=== PATIENT | female | born 1975 | race Caucasian/White ===

== ENCOUNTER 2020-03-08 18:06 | Emergency (ER) | payer OTHER, SELFPAY ==
[2020-03-08 18:45] LABS: Add Urine Microscopic? YES; Appearance Urine Clear (Clear); Bilirubin Urine Negative (Negative); Blood Urine 1+ (Negative); Color Urine Yellow (Yellow); Glucose Urine UA Negative (Negative); Ketones Urine Negative (Negative); Leukocyte Esterase Ur 2+ (Negative); Nitrate Urine Negative (Negative); Protein Urine Negative (Negative); Urobilinogen Urine 0.2 mg/dL (0.2-1.0); pH Urine 6.5 (5.0-8.0)
[2020-03-08 18:51] VITALS: BP 179/91; PULSE 84; RESP 20; TEMP 36.8; O2SAT 98
[2020-03-08 18:51] LABS: Bacteria Urine 1+ /hpf; Squamous Epithelial Cell Urine Moderate /hpf (Few)
[2020-03-08 19:10] LABS: SARS-CoV-2 Ag Negative (Negative)
--- NOTE | 2020-03-08 19:12 | ED.FEMALEGU ---
HPI - Female Genitourinary General Chief complaint: Urogenital-Female Stated complaint: pt thinks she has covid, chills,SOB,Nausea Time Seen by Provider: 03/08/20 19:00 Source: patient Mode of arrival: ambulatory Limitations: no limitations History of Present Illness HPI Narrative: Patent comes in after having chills, at home. She is worried she may have Covid, as she may have been exposed. She has had dysuria for 1 week, frequency and urgency for several days. No fever that she knows of. MD elicited complaint: dysuria and pelvic pain Severity: moderate Female Urogenital Radiation: Non-Radiating Severity scale (1-10): 5 Quality of pain: cramping Urinary symptoms: Dysuria, Urgency and Frequency Exacerbating factors: urination Associated symptoms: denies other symptoms Treatment prior to arrival: other (pyridium) Related Data Home Medications Medication Instructions Recorded Confirmed cyclobenzaprine 10 mg PO BID 03/08/20 03/08/20 dicyclomine 20 mg PO TID 03/08/20 03/08/20 famotidine 40 mg PO DAILY 03/08/20 03/08/20 fluoxetine [Prozac] 20 mg PO DAILY 03/08/20 03/08/20 levothyroxine 112 mcg PO DAILY 03/08/20 03/08/20 metformin 500 mg PO BID 03/08/20 03/08/20 quetiapine 400 mg PO DAILY 03/08/20 03/08/20 valacyclovir 500 mg PO BID 03/08/20 03/08/20 Allergies Allergy/AdvReac Type Severity Reaction Status Date / Time No Known Allergies Allergy Verified 03/08/20 18:58 Review of Systems Constitutional: Constitutional: Reports no additional constitutional complaints Eyes: Eyes: Reports no additional eye complaints ENT: Reports system reviewed and no additional complaints, except as documented Cardiovascular: Cardiovascular: Reports no additional cardiovascular complaints Respiratory: Respiratory: Reports no additional respiratory complaints Gastrointestinal: Gastrointestinal: Reports no additional gastrointestinal complaints Genitourinary: Genitourinary: Reports no additional female genitourinary complaints Musculoskeletal: Musculoskeletal: Reports no additional musculoskeletal complaints Integumentary/Breasts: Skin/Breast: Reports system reviewed and no additional complaints, except as docu Neurologic: Reports system reviewed and no additional complaints, except as documented Psychiatric: Psychiatric: Reports no additional psychiatric complaints Endocrine: Endocrine: Reports no additional endocrine complaints Hematologic/Lymphatic: Hematologic/Lymphatic: Reports no additional hematologic/lymphatic complaints Allergic/Immunologic: Allergic/Immunologic: Reports no additional allergic/immunologic complaints [facility] Past Medical History Medical History (Updated 03/08/20 @ 19:47 by Albin Koroma MD) ADD (attention deficit disorder) Bipolar 1 disorder delivery delivered Depression Hypothyroid Family History Family History (Updated 03/08/20 @ 19:46 by Albin Koroma MD) Father Diabetes mellitus Mother Diabetes mellitus Heart disease Social History Social History (Updated 03/08/20 @ 19:39 by Albin Koroma MD) Smoking status: Current every day smoker Tobacco type: cigarettes Alcohol intake: never Substance use: never Living arrangements: with family Gender identity (if verbalized by the patient): Female Exam Const: General: no acute distress HENMT: Head: normal to inspection Eyes: Conjunctivae: conjunctivae normal Neck: Neck: normal visual inspection Lymphatic: no lymphedema noted Chest: Chest palpation & inspection: normal inspection of the chest Resp: Effort & Inspection: normal respiratory effort Auscultation: clear to auscultation bilaterally Cardio: Rate: regular rate Rhythm: regular rhythm GI: GI Palp: Yes Soft to palpation Other: non tender : Other: tender over bladder Skin: General skin exam: normal color Neuro: General: patient oriented x3 and moves all extremities Extrem: General: normal to inspection Psych: Mental Status: mental
[2020-03-08] MEDS: LIDOCAINE HCL 1% LOCAL INJ 20 ML VIAL (19:22)
[2020-03-08] MEDS: cefTRIAXone 1 GM VIAL IM (19:22)
[2020-03-08 19:55] VITALS: PULSE 80; RESP 20; O2SAT 98
== END 2020-03-08 19:56 | disposition home or self-care (01) ==
PROVIDERS: Emergency Provider Emergency Medicine; PCP Family Medicine
DX: N39.0 Urinary tract infection, site not specified (principal)
CPT/HCPCS: 81001; 87077; 87086; 87088; 87186; 87426; 96372; 99283; J0696

== ENCOUNTER 2020-11-10 08:48 | Outpatient (CLI) | payer OTHER, SELFPAY ==
--- NOTE | 2020-11-10 15:38 | WPDPFTINT ---
PFT Procedure Performed PFT Procedure Performed Spirometry with Pre/Post Bronchodilator Plethysmography (Lung Vol) Diffusing Cap (DLCO) Flow Vol Loop PFT Interpretation DOS: 11/10/2020 REQUESTING: Shruthi Ramírez MD REASON FOR TESTING: Shortness of breath PULMONARY FUNCTION TESTS Results are reliable and reproducible. Spirometry: FEV1 is 114% predicted, 3.3 L. FVC is 125% predicted. The FEV1/FVC ratio is 89%, normal. After bronchodilator administration there is no increase in flows. Lung volumes: Total lung capacity is 102% predicted, normal. Residual volume is 68%, normal. RV/TLC is 23%, no air trapping. Airway resistance is increased 141%. Diffusion: DLCO is 82%, normal. Flow volume loop: Normal. IMPRESSION: This pulmonary function study shows normal spirometry, lung volumes and diffusion. No response to bronchodilator administration. Lack of response to bronchodilator should not preclude use if clinically indicated. This study was performed prior to a methacholine challenge. Danika Bucio MD
--- NOTE | 2020-11-10 15:51 | WPDMETH ---
Methacholine Procedure Perform Procedure Performed Methacholine Challenge Methacholine Challenge Methacholine Challenge: DOS: 11/10/2020 REQUESTING: Shruthi Ramírez MD; JASMYN Bennett REASON FOR TESTING: Shortness of breath METHACHOLINE CHALLENGE This test was conducted per ATS guidelines. A previous study today showed normal spirometry. The patient was exposed to sequentially increasing doses of methacholine in the usual manner. Pre-baseline - saline Level 1 - 0.025 mg Level 2 - 0.25 mg Level 3 - 2.5 mg ; drop in FEV1 29% after this dose Level 4 - 10 mg Level 5 - 25 mg The test was stopped after the 3rd dose when the FEV1 dropped by 29%. A decrease of 20% in the FEV1 is a positive result, and the testing is terminated. Flows returned to normal after bronchodilator was administered. IMPRESSION: This is a positive methacholine challenge with the PD20 2.5 mg on the third dose. The best use for a methacholine challenge is to rule out asthma. Clinical correlation is advised. Danika Bucio MD
== END 2020-11-10 08:49 | disposition home or self-care (01) ==
LOC: CHSCARD 08:50
PROVIDERS: PCP Family Medicine; Visit Provider Physician Assistant
DX: R06.02 Shortness of breath (principal)
CPT/HCPCS: 94070; 94726; 94729

== ENCOUNTER 2022-05-22 19:22 | Emergency (ER) | payer OTHER, SELFPAY ==
--- NOTE | ~2022-05-22 | CT_ITS ---
EXAMINATION: CT brain wo con DATE: 05/22/2022 20:51 INDICATION: CONFUSION, HALLUCINATIONS W/ GENERALIZED CP + ANXIETY. . TECHNIQUE: Computed tomography (CT) of the head was performed without intravenous contrast. The mA wa s adjusted according to patient size. Iterative reconstruction technique was employed. The dose-lengt h product was 605.33 mGy-cm. COMPARISON: None. FINDINGS: No acute intracranial hemorrhage or extra-axial fluid collection. No hydrocephalus, mass, or herniation. No acute ischemic infarct. Unremarkable dural venous sinus attenuation. No acute osseous abnormality. The aerated spaces are clear. IMPRESSION: No acute intracranial process. Reviewed, dictated and finalized at location K.
[2022-05-22] MEDS: LORazepam INJ (*CRX) 2 MG/ML VIAL IV PUSH (19:31)
--- NOTE | 2022-05-22 19:43 | ED.ANXIETY ---
HPI - Anxiety General Chief Complaint: Overdose Stated Complaint: Anxiety Attck Time Seen by Provider: 05/22/22 19:43 Source: patient Mode of arrival: ambulatory History of Present Illness HPI narrative: 46-year-old female, smoker with a history of ADHD, bipolar, depression , polysubstance abuse when she was younger, Seizure related to drug withdrawal, was brought in to the ER by EMS -- anxiety attack. the patient was thrashing her upper and lower extremities and arching her back at home before the EMS was called. She had a similar episode in the ER room. -- the patient stated that she ingested a cookie containing marijuana. She is unsure as to what it contained. Subsequently she started having these anxiety attacks. -- Auditory and visual hallucinations. complaint: anxiety Onset (ago): hour(s) ( Started 2 hours ago) Symptoms: dyspnea, chest pain and palpitations Quality: intermittent Place: home History of similar episodes: Yes Associated symptoms: chest pain, shortness of breath and palpitations Related Data Home Medications Medication Instructions Recorded Confirmed cyclobenzaprine 10 mg tablet 10 mg PO BID 03/08/20 05/22/22 dicyclomine 20 mg tablet 20 mg PO TID 03/08/20 05/22/22 famotidine 40 mg tablet 40 mg PO DAILY 03/08/20 05/22/22 fluoxetine 20 mg capsule (Prozac) 20 mg PO DAILY 03/08/20 05/22/22 levothyroxine 112 mcg tablet 112 mcg PO DAILY 03/08/20 05/22/22 metformin 500 mg tablet,extended 500 mg PO BID 03/08/20 05/22/22 release 24 hr quetiapine 400 mg tablet 400 mg PO DAILY 03/08/20 05/22/22 valacyclovir 500 mg tablet 500 mg PO BID 03/08/20 05/22/22 Adderall XR 30 mg PO DAILY 05/22/22 05/22/22 albuterol sulfate 2.5 mg/3 mL 2.5 mg inhalation TID PRN 05/22/22 05/22/22 (0.083 %) solution for nebulization Shortness Of Breath albuterol sulfate 90 mcg/actuation 90 mcg inhalation TID PRN 05/22/22 05/22/22 aerosol inhaler Shortness Of Breath mometasone-formoterol HFA 200 5 puff inhalation TID PRN 05/22/22 05/22/22 mcg-5 mcg/actuation aerosol Shortness Of Breath inhaler (Dulera) Allergies Allergy/AdvReac Type Severity Reaction Status Date / Time No Known Allergies Allergy Verified 03/08/20 18:58 Review of Systems Review of Systems: All systems reviewed & are unremarkable except as noted in HPI and below Constitutional: Constitutional: Reports as per HPI and Reports no additional constitutional complaints Eyes: Eyes: Reports as per HPI and Reports no additional eye complaints ENT: Reports system reviewed and no additional complaints, except as documented and Reports as per HPI Cardiovascular: Cardiovascular: Reports as per HPI, Reports no additional cardiovascular complaints and Reports chest pain Respiratory: Respiratory: Reports as per HPI, Reports no additional respiratory complaints and Reports dyspnea Gastrointestinal: Gastrointestinal: Reports as per HPI and Reports no additional gastrointestinal complaints Genitourinary: Genitourinary: Reports no additional female genitourinary complaints and Reports as per HPI Musculoskeletal: Musculoskeletal: Reports no additional musculoskeletal complaints and Reports as per HPI Integumentary/Breasts: Skin/Breast: Reports system reviewed and no additional complaints, except as docu and Reports as per HPI Neurologic: Reports system reviewed and no additional complaints, except as documented and Reports as per HPI Psychiatric: Psychiatric: Reports no additional psychiatric complaints, Reports as per HPI and Reports anxiety Endocrine: Endocrine: Reports no additional endocrine complaints and Reports as per HPI Hematologic/Lymphatic: Hematologic/Lymphatic: Reports no additional hematologic/lymphatic complaints and Reports as per HPI Allergic/Immunologic: Allergic/Immunologic: Reports no additional allergic/immunologic complaints and Reports as per HPI [facility] Past Medical History Medical History
[2022-05-22 19:45] VITALS: PULSE 94
[2022-05-22 19:46] VITALS: BP 125/88; PULSE 96; RESP 18; TEMP 36.9; O2SAT 96
--- NOTE | 2022-05-22 19:50 | ECG_ITS ---
Measurements Intervals [place] Rate: 93 P: 28 WY: 155 QRS: 24 QRSD: 93 T: -6 QT: 361 QTc: 450 Interpretive Statements SINUS RHYTHM BORDERLINE ST-T WAVE ABNORMALITY- INFERIOR LEADS BORDERLINE ECG NO PREVIOUS ECG AVAILABLE FOR COMPARISON Electronically Signed On 05-22-2022 20:33:27 CDT by Madan Mirza D.O.
[2022-05-22] MEDS: LACTATED RINGERS 1,000 ML 999 ML IV CONT (20:04)
[2022-05-22] MEDS: MIDAZOLAM HCL (*CRX) 2 MG/2 ML VIAL IV PUSH (20:04)
[2022-05-22 20:11] LABS: Basophils Absolute Auto 0.02 K/mm3 (0.00-0.10); Basophils Percent Auto 0.3 % (0.0-1.0); Eosinophils Absolute Auto 0.03 K/mm3 (0.02-0.50); Eosinophils Percent Auto 0.5 % (1.0-6.0); Hematocrit 36.5 % (35.0-49.0); Hemoglobin 12.9 g/dL (12.0-15.0); Immature Granulocyte Absolute 0.02 K/mm3 (0.00-0.00); Immature Granulocyte Percent A 0.3 % (0.0-0.0); Lymphocytes Percent Auto 25.2 % (18.0-42.0); Mean Corpuscular HGB Conc 35.3 g/dL (32.0-36.0); Mean Corpuscular Hemoglobin 34.3 pg (27.0-31.0); Mean Corpuscular Volume 97.1 fL (78.0-102.0); Mean Platelet Volume 8.1 fl (9.2-11.8); Monocytes Absolute Auto 0.32 K/mm3 (0.10-0.90); Monocytes Percent Auto 5.4 % (2.0-11.0); Neutrophils Absolute Auto 4.1 K/mm3 (1.7-7.2); Neutrophils Percent Auto 68.3 % (50.0-70.0); Platelet Count Result 221 K/mm3 (150-420); Red Blood Count 3.76 M/mm3 (4.20-5.40); Red Cell Distribution Width 11.7 % (11.6-14.4)
[2022-05-22] MEDS: ONDANSETRON INJ 4 MG/2 ML VIAL IV PUSH (20:24)
[2022-05-22 20:30] LABS: Appearance Urine Clear (Clear); Bilirubin Urine Negative (Negative); Blood Urine 2+ (Negative); Color Urine Yellow (Yellow); Glucose Urine UA Negative (Negative); Ketones Urine Negative (Negative); Leukocyte Esterase Ur Negative LEU/UL (Negative); Nitrate Urine Negative (Negative); Protein Urine Negative (Negative); Specific Grav Ur >= 1.030 (1.010-1.020); Urobilinogen Urine 0.2 mg/dL (0.2-1.0); pH Urine 5.5 (5.0-8.0)
[2022-05-22 20:38] LABS: Lactic Acid Reflex 1.4 mmol/L (0.4-2.0)
[2022-05-22 20:38] LABS: Add Urine Microscopic? YES; Bacteria Urine Trace /hpf; Squamous Epithelial Cell Urine Moderate /hpf (Few); WBC Urine 0-3 /hpf (0-3)
[2022-05-22 20:44] LABS: Amphetamine Screen Urine Positive (Negative); Barbiturate Screen Urine Negative (Negative); Benzodiazepines Screen Urine Negative (Negative); Cannabinoid Screen Urine Positive (Negative); Cocaine Screen Urine Negative (Negative); Methadone Screen Urine Negative (Negative); Opiate Screen Urine Negative (Negative); Phencyclidine Screen Urine Negative (Negative); SPREG INTERNAL CONTROL Positive; Serum Qual hCG Negative
[2022-05-22 20:52] LABS: Alanine Aminotransferase 22 U/L (14-59); Albumin Level 3.5 g/dL (3.4-5.0); Alkaline Phosphatase 76 U/L (46-116); Anion Gap 12 mmol/L (8-16); Aspartate Amino Transferase < 10 U/L (15-37); Bilirubin,Total 0.1 mg/dL (0.00-1.00); Blood Urea Nitrogen 11 mg/dL (7-18); Calcium 8.8 mg/dL (8.5-10.1); Carbon Dioxide 23 mmol/L (21-32); Chloride 104 mmol/L (98-108); Estimated CRCL calculation 90 ml/min; Estimated Glomerular Filt Rate > 60; Glucose 123 mg/dL (70-99); Osmolality Calculated 288 mOsm/kg (285-295); Potassium 4.4 mmol/L (3.5-5.1); Sodium 139 mmol/L (136-145); Total Protein 6.9 g/dL (6.4-8.2)
[2022-05-22 20:55] LABS: Acetaminophen < 2 ug/mL (10-30); Salicylate 3.5 mg/dL (2.8-20.0); Thyroid Stimulating Hormone 0.15 uIU/mL (0.36-3.74)
[2022-05-22 20:56] LABS: Ethanol < 3 mg/dL (0-6); Troponin I 4.1 ng/L (0.00-60.4)
[2022-05-22 21:17] VITALS: BP 124/63; PULSE 89; RESP 18; O2SAT 98
[2022-05-22] MEDS: diazePAM (*CRX) 5 MG TABLET PO (21:36)
[2022-05-22 21:45] VITALS: BP 121/81; PULSE 98; RESP 20; TEMP 36.7; O2SAT 100
== END 2022-05-22 21:55 | disposition home or self-care (01) ==
PROVIDERS: Emergency Provider Internal Medicine Critical Care Medicine; PCP Family Medicine
DX: F41.0 Panic disorder [episodic paroxysmal anxiety] (principal); F15.19 Other stimulant abuse with unspecified stimulant-induced disorder; R56.9 Unspecified convulsions; E05.90 Thyrotoxicosis, unspecified without thyrotoxic crisis or storm; F32.A Depression, unspecified; F98.8 Other specified behavioral and emotional disorders with onset usually occurring in childhood and adolescence; F17.210 Nicotine dependence, cigarettes, uncomplicated; Z79.899 Other long term (current) drug therapy
CPT/HCPCS: 36415; 70450; 80053; 80307; 81001; 83605; 84443; 84484; 84703; 85025; 93005; 96361; 96374; 96375; 99284; A9270; J2060; J2250; J2405; J7120

== ENCOUNTER 2022-08-18 01:30 | Emergency (ER) | payer OTHER, SELFPAY ==
--- NOTE | ~2022-08-18 | XR_ITS ---
EXAMINATION: XR chest 1V portable 08/18/2022 01:57 INDICATION: S pressure PROCEDURE: AP portable chest COMPARISON: No prior studies for comparison. FINDINGS: The lungs are clear. The cardiomediastinal silhouette is within normal limits. There are no pleural effusions. There is no pneumothorax suspected. IMPRESSION: 1: NO ACUTE CARDIOPULMONARY DISEASE. Reviewed, dictated and finalized at location A.
[2022-08-18 01:43] VITALS: BP 96/66; PULSE 94; TEMP 36.3; O2SAT 96
--- NOTE | 2022-08-18 01:48 | ECG_ITS ---
Measurements Intervals [place] Rate: 84 P: -38 CO: 139 QRS: 50 QRSD: 78 T: 18 QT: 368 QTc: 436 Interpretive Statements SINUS RHYTHM NONSPECIFIC T-WAVE ABNORMALITY COMPARED TO ECG 05/22/2022 20:00:10 NO SIGNIFICANT CHANGE Electronically Signed On 08-18-2022 8:45:11 CDT by Melody Meyers M.D.
[2022-08-18] MEDS: LORazepam INJ (*CRX) 2 MG/ML VIAL 1 MG IV PUSH (01:59)
[2022-08-18] MEDS: IPRATROPIUM 0.5 MG/ALBUTEROL SULFATE 2.5 MG AMPUL.NEB 3 ML INHALATION (02:05)
[2022-08-18 02:06] VITALS: PULSE 84; RESP 22; O2SAT 96
[2022-08-18 02:08] VITALS: PULSE 84; RESP 22; O2SAT 96
--- NOTE | 2022-08-18 02:08 | ED.GENADULT ---
HPI - General Adult General Chief complaint: Asthma Stated complaint: SOB History of Present Illness HPI narrative: Patricia is a 47F with a PMH of asthma (had normal spirometry and negative methacholine challenge in 2020), anxiety, and and polysubstance abuse that presented to the ED with dyspnea. She reports that she has been sick recently as well and has just completed a course of steroids and antibiotics recently for a URI. She had been having some dyspnea and used several home breathing treatments but since it woke her up from sleep she became concerned and presented to the ED. While here in the ED she states that she has pressure in her chest, cannot take a deep breath and has a cough. No vomiting, fevers, or lightheadedness. Related Data Home Medications Medication Instructions Recorded Confirmed cyclobenzaprine 10 mg tablet 10 mg PO BID 03/08/20 08/18/22 dicyclomine 20 mg tablet 20 mg PO TID 03/08/20 08/18/22 famotidine 40 mg tablet 40 mg PO DAILY 03/08/20 08/18/22 levothyroxine 112 mcg tablet 112 mcg PO DAILY 03/08/20 08/18/22 metformin 500 mg tablet,extended 500 mg PO BID 03/08/20 08/18/22 release 24 hr quetiapine 400 mg tablet 600 mg PO DAILY 03/08/20 08/18/22 valacyclovir 500 mg tablet 500 mg PO BID 03/08/20 08/18/22 Adderall XR 30 mg PO DAILY 05/22/22 08/18/22 albuterol sulfate 2.5 mg/3 mL 2.5 mg inhalation TID PRN 05/22/22 08/18/22 (0.083 %) solution for nebulization Shortness Of Breath albuterol sulfate 90 mcg/actuation 90 mcg inhalation TID PRN 05/22/22 08/18/22 aerosol inhaler Shortness Of Breath mometasone-formoterol HFA 200 5 puff inhalation TID PRN 05/22/22 08/18/22 mcg-5 mcg/actuation aerosol Shortness Of Breath inhaler (Dulera) fluoxetine 80 mg PO DAILY 08/18/22 08/18/22 montelukast 10 mg tablet 10 mg PO DAILY 08/18/22 08/18/22 Allergies Allergy/AdvReac Type Severity Reaction Status Date / Time No Known Allergies Allergy Verified 08/18/22 01:41 Review of Systems Review of Systems: All systems reviewed & are unremarkable except as noted in HPI and below PMFSH Past Medical History Medical History ADD (attention deficit disorder) Bipolar 1 disorder delivery delivered Depression Hypothyroid Family History Family History Father Diabetes mellitus Mother Diabetes mellitus Heart disease Social History Social History Smoking status: Current every day smoker Tobacco type: cigarettes Alcohol intake: never Substance use: never Substance use type: former substance user and marijuana Living arrangements: with family Gender identity (if verbalized by the patient): Female Exam Const: General: no acute distress Nutritional Appearance: obese Orientation/consciousness: patient oriented x3 Limitations: no limitations HENMT: Head: normal to inspection Ears: external ears normal Face/Nose/Sinus: Normal external nose present Eyes: Conjunctivae: conjunctivae normal Pupils: Equal, round and reactive pupils present Neck: Neck: normal visual inspection Chest: Chest palpation & inspection: normal inspection of the chest Resp: Effort & Inspection: normal respiratory effort, not labored, no retractions and tachypneic Auscultation: clear to auscultation bilaterally Other: no cough on exam Cardio: Rate: regular rate Rhythm: regular rhythm GI: Inspection: non-distended Auscultation: normal bowel sounds Skin: General skin exam: normal color Rashes: no rashes Neuro: General: patient oriented x3 and moves all extremities Extrem: General: normal to inspection Psych: Mental Status: mental status grossly normal Other: Very anxious appearing Course Course Emergency Course: Ordered labs, CXR, EKG, duoneb and ativan EKG showed NSR with a rate of 84, normal axis, but a diffuse no
[2022-08-18] MEDS: ONDANSETRON INJ 4 MG/2 ML VIAL IV PUSH (02:19)
[2022-08-18 02:24] VITALS: BP 98/58; PULSE 74; RESP 20; O2SAT 94
[2022-08-18 02:25] LABS: Basophils Absolute Auto 0.02 K/mm3 (0.00-0.10); Basophils Percent Auto 0.3 % (0.0-1.0); Eosinophils Absolute Auto 0.05 K/mm3 (0.02-0.50); Eosinophils Percent Auto 0.7 % (1.0-6.0); Hematocrit 37.2 % (35.0-49.0); Hemoglobin 12.6 g/dL (12.0-15.0); Immature Granulocyte Absolute 0.03 K/mm3 (0.00-0.00); Immature Granulocyte Percent A 0.4 % (0.0-0.0); Lymphocytes Absolute Auto 3.27 K/mm3 (1.10-4.50); Lymphocytes Percent Auto 46.4 % (18.0-42.0); Mean Corpuscular HGB Conc 33.9 g/dL (32.0-36.0); Mean Corpuscular Hemoglobin 34.5 pg (27.0-31.0); Mean Corpuscular Volume 101.9 fL (78.0-102.0); Mean Platelet Volume 8.2 fl (9.2-11.8); Monocytes Absolute Auto 0.33 K/mm3 (0.10-0.90); Monocytes Percent Auto 4.7 % (2.0-11.0); Neutrophils Absolute Auto 3.3 K/mm3 (1.7-7.2); Neutrophils Percent Auto 47.5 % (50.0-70.0); Platelet Count Result 222 K/mm3 (150-420); Red Blood Count 3.65 M/mm3 (4.20-5.40); Red Cell Distribution Width 12.7 % (11.6-14.4)
[2022-08-18 02:30] LABS: Pregnancy On Board Control Positive; Urine Pregnancy Test Negative
[2022-08-18 02:45] LABS: Alanine Aminotransferase 33 U/L (14-59); Albumin Level 3.1 g/dL (3.4-5.0); Alkaline Phosphatase 65 U/L (46-116); Anion Gap 20 mmol/L (8-16); Aspartate Amino Transferase 19 U/L (15-37); Bilirubin,Total 0.3 mg/dL (0.00-1.00); Blood Urea Nitrogen 13 mg/dL (7-18); Carbon Dioxide 16 mmol/L (21-32); Chloride 101 mmol/L (98-108); Estimated CRCL calculation 67 ml/min; Estimated Glomerular Filt Rate 54; Glucose 198 mg/dL (70-99); Magnesium 1.5 mg/dL (1.8-2.4); NT Pro B Type Natriuretic Pept 17 pg/mL (0-125); Osmolality Calculated 290 mOsm/kg (285-295); Potassium 3.2 mmol/L (3.5-5.1); Sodium 137 mmol/L (136-145); Troponin I 4.2 ng/L (0.00-60.4)
[2022-08-18 02:56] VITALS: PULSE 74; RESP 92
[2022-08-18] MEDS: POTASSIUM CHLORIDE 20 MEQ ER TABLET 40 MEQ PO (03:17)
[2022-08-18] MEDS: MAGNESIUM OXIDE 400 MG TABLET PO (03:18)
[2022-08-18 03:23] VITALS: BP 117/62; PULSE 71; RESP 18; O2SAT 93
== END 2022-08-18 03:24 | disposition home or self-care (01) ==
PROVIDERS: Emergency Provider Family Medicine; PCP Family Medicine
DX: F41.9 Anxiety disorder, unspecified (principal); E03.9 Hypothyroidism, unspecified; F32.A Depression, unspecified; F17.210 Nicotine dependence, cigarettes, uncomplicated
CPT/HCPCS: 36415; 71045; 80053; 81025; 83735; 83880; 84484; 85025; 93005; 94640; 96374; 96375; 99284; A9270; J2060; J2405

== ENCOUNTER 2023-07-24 17:08 | Emergency (ER) | payer OTHER, SELFPAY ==
--- NOTE | ~2023-07-24 | XR_ITS ---
XR ankle RT min 3V DATE: 07/24/2023 17:38 INDICATION: Ankle and foot injury TECHNIQUE: 3 views COMPARISON: None FINDINGS: Mild plantar calcaneal enthesopathy. No fracture or dislocation of the ankle or disruption of the ankle mortise. No periosteal reaction or bone destruction. IMPRESSION: No fracture or dislocation of the ankle Reviewed, dictated and finalized at location B.
--- NOTE | ~2023-07-24 | XR_ITS ---
EXAMINATION: XR foot RT min 3V DATE: 07/24/2023 17:38 INDICATION: Right foot injury. TECHNIQUE: 3 views of right foot were obtained. COMPARISON: None. FINDINGS: Bone alignment is normal. No fracture. Joint spaces are normal. There is an enthesophyte at plantar aspect of calcaneal tuberosity. IMPRESSION: 1. No fracture. Reviewed, dictated and finalized at location E. IMPRESSION: 1. No fracture.
[2023-07-24 17:16] VITALS: BP 147/87; PULSE 88; RESP 20; TEMP 36.9; O2SAT 96
[2023-07-24] MEDS: KETOROLAC (*BKC) 60 MG/2 ML VIAL IM (17:46)
--- NOTE | 2023-07-24 18:18 | ED.LOWEXIN ---
HPI - Extremity Injury (Lower) General Chief Complaint: Extremity Injury, Lower Stated Complaint: FOOT PAIN Source: patient Mode of arrival: ambulatory Limitations: no limitations History of Present Illness HPI Narrative: this is a 47 year female that presents with injury to her right lower foot and ankle after log rolled on top causing swelling and bruising has good range of motion with no numbness or tingling and has a good brisk pedal pulse on the right. MD complaint: ankle injury and foot injury Onset (ago): hour(s) Type of Injury: blunt Place: street/outdoors Severity: moderate Severity scale (1-10): 5 Relieving factors: NSAID, cold therapy, immobilization and rest Exacerbating factors: weight bearing, movement and palpation Context: direct blow Related Data Home Medications Medication Instructions Recorded Confirmed cyclobenzaprine 10 mg tablet 10 mg PO BID 03/08/20 07/24/23 famotidine 40 mg tablet 40 mg PO DAILY 03/08/20 07/24/23 quetiapine 400 mg tablet 600 mg PO DAILY 03/08/20 07/24/23 valacyclovir 500 mg tablet 500 mg PO BID 03/08/20 07/24/23 albuterol sulfate 2.5 mg/3 mL 2.5 mg inhalation TID PRN 05/22/22 07/24/23 (0.083 %) solution for nebulization Shortness Of Breath albuterol sulfate 90 mcg/actuation 90 mcg inhalation TID PRN 05/22/22 07/24/23 aerosol inhaler Shortness Of Breath mometasone-formoterol HFA 200 5 puff inhalation TID PRN 05/22/22 07/24/23 mcg-5 mcg/actuation aerosol Shortness Of Breath inhaler (Dulera) fluoxetine 80 mg PO DAILY 08/18/22 07/24/23 dextroamphetamine-amphetamine ER 30 mg PO BID 07/24/23 07/24/23 30 mg 24hr capsule,extend release dulaglutide 0.75 mg/0.5 mL 0.75 mg subcut WEEKLY 07/24/23 07/24/23 subcutaneous pen injector (Trulicity) gabapentin 300 mg capsule 300 mg PO BID 07/24/23 07/24/23 ipratropium bromide 0.02 % See Rx Instructions .Route .COMPLEX 07/24/23 07/24/23 solution for inhalation levothyroxine 100 mcg tablet 100 mcg PO DAILY 07/24/23 07/24/23 umeclidinium 62.5 mcg/actuation 1 inh inhalation DAILY 07/24/23 07/24/23 blister powder for inhalation (Incruse Ellipta) Allergies Allergy/AdvReac Type Severity Reaction Status Date / Time No Known Allergies Allergy Verified 08/18/22 01:41 Review of Systems Review of Systems: All systems reviewed & are unremarkable except as noted in HPI and below PMFSH Past Medical History Medical History ADD (attention deficit disorder) Bipolar 1 disorder delivery delivered Depression Hypothyroid Family History Family History Father Diabetes mellitus Mother Diabetes mellitus Heart disease Social History Social History Smoking status: Current every day smoker Tobacco type: cigarettes Alcohol intake: never Substance use: never Substance use type: former substance user and marijuana Living arrangements: with family Gender identity (if verbalized by the patient): Female Exam Const: General: healthy appearing, no acute distress and alert Nutritional Appearance: well nourished Orientation/consciousness: patient oriented x3 Limitations: no limitations Neck: Neck: normal visual inspection Chest: Chest palpation & inspection: normal inspection of the chest Resp: Effort & Inspection: normal respiratory effort Cardio: Rate: regular rate Rhythm: regular rhythm Skin: Wounds: wounds noted Other: Bruising right lower foot and ankle Extrem: Other: swelling with bruising right foot and ankle Course Course Emergency Course: x-ray performed shows no acute fractures, patient received a 60mg IM dose of Toradol and pain level has improved Vital Signs Vital signs: Vital Signs Temperature 36.9 C 07/24/23 17:16 Pulse Rate 88 07/24/23 17:16 Respiratory Rate 20 07/24/23 17:16 Blood Pr
[2023-07-24 18:32] VITALS: BP 104/86; PULSE 75; RESP 20; TEMP 36.7; O2SAT 99
== END 2023-07-24 18:35 | disposition home or self-care (01) ==
PROVIDERS: Emergency Provider Emergency Medicine
DX: S93.401A Sprain of unspecified ligament of right ankle, initial encounter (principal); W20.8XXA Other cause of strike by thrown, projected or falling object, initial encounter; F98.8 Other specified behavioral and emotional disorders with onset usually occurring in childhood and adolescence; F31.9 Bipolar disorder, unspecified; E03.9 Hypothyroidism, unspecified; F17.210 Nicotine dependence, cigarettes, uncomplicated; Z79.51 Long term (current) use of inhaled steroids; Z79.85 Long-term (current) use of injectable non-insulin antidiabetic drugs
CPT/HCPCS: 73610; 73630; 96372; 99283; J1885